=== PATIENT | female | born 1950 | race Caucasian/White ===

== ENCOUNTER 2018-02-25 13:01 | Emergency (ER) | payer MEDICARE, OTHER, SELFPAY ==
[2018-02-25 13:02] VITALS: BP 151/77; PULSE 110; RESP 18; TEMP 36.6; O2SAT 96; BMI 31.6
[2018-02-25] MEDS: Ketorolac 60 MG/2 ML Vial IM (14:19)
--- NOTE | 2018-02-25 14:56 | ED.DCSUM_ITS ---
- ER Visit Summary Date of Service: 02/25/18 Chief Complaint: [] Left medial leg pain after walking aggressively History of Present Illness: The patient is a 67 F [] she was trying to stay fit so she was very aggressively walking to lose weight and strengthen her body she pulled a muscle involving her left medial knee region this occurred many days ago, she was seen about for 5 days ago by her history at a local outside facility and had an evaluation that included an ultrasound that showed no DVT she had no direct trauma to her leg she presents because she has persistence of the pain she does not follow with her family physician or the other follow-up physician she was referred to she denies hip pain no trauma no lower extremity abnormalities or issues Physical Examination: [] Points directly to the left the region of her knee head neck chest unremarkable the abdomen soft she has full range of motion of her hip she has full flexion-extension of both lower extremities the left knee exam is unremarkable there is no instability deformity there is some very mild pain to palpation of the left medial muscular groups here. The popliteal fossa is nontender the distal lower extremity exam shows no edema no signs of DVT good perfusion and warmth the right lower extremities unremarkable the backs unremarkable. Test Results: [] Emergency Department Course and Treatment: [] Conversation with her explained her we could do an x-ray which she declined she double confirmed with me that she did have a duplex scan that showed no DVT and she has no history of DVT or trauma I explained this is likely musculoskeletal she has made an appointment see an orthopedic surgeon which she wants to follow-up with at this time we will treated with Toradol prescribed Naprosyn ice to the area no aggressive walking and have her follow-up with [facility] she is scheduled to see and return for change in symptoms Treatment Plan: [] Disposition: [] Home stable Impression: [] Left medial leg pain after aggressively walking This note was generated with [employer] dictation software. It may contain incorrect words, spelling, and punctuation that were not noted in review of the chart prior to signing ED Disposition - Plan for ED Patient: Chief Complaint: Lower Extremity Injury Referrals: Care Physician,No Primary [Primary Care Provider] -
--- NOTE | 2018-02-25 14:56 | ED.DEP ---
ED Disposition - Plan for ED Patient: Chief Complaint: Lower Extremity Injury Instructions: ED Knee Pain [facility] Prescriptions: Naproxen [Naprosyn] 500 mg PO BID PRN #20 tab Referrals: Care Physician,No Primary [Primary Care Provider] -
== END 2018-02-25 17:35 | disposition home or self-care (01) ==
PROVIDERS: Emergency Provider Emergency Medicine
DX: M79.605 Pain in left leg (principal); Z79.84 Long term (current) use of oral hypoglycemic drugs; Z79.899 Other long term (current) drug therapy
CPT/HCPCS: 96372; 99282

== ENCOUNTER → 2018-06-03 16:10 | Outpatient (CLI) | payer MEDICARE, OTHER, SELFPAY ==
[2018-06-03 17:22] LABS: Free T3 2.7 pg/mL (2.18-3.98); T4 Free Direct 1.14 ng/dL (0.76-1.46); Thyroid Stim Hormone (TSH) 2.89 uIU/mL (0.358-3.74)
== END ==
PROVIDERS: Family Provider Family Medicine; PCP Family Medicine; Referring Provider Nurse Practitioner; Visit Provider Nurse Practitioner
DX: E03.9 Hypothyroidism, unspecified (principal); E07.9 Disorder of thyroid, unspecified
CPT/HCPCS: 36415; 84439; 84443; 84481

== ENCOUNTER 2021-04-13 13:40 | Emergency (ER) | payer MEDICARE, OTHER, SELFPAY ==
[2021-04-13 13:41] VITALS: BP 141/64; PULSE 118; RESP 18; TEMP 36.4; O2SAT 94; BMI 33.5
--- NOTE | 2021-04-13 13:57 | CT_ITS ---
STUDY: CT ABDOMEN AND PELVIS WITH CONTRAST REASON FOR EXAM: Female, 70 years old. obstruction, right side pain RADIATION DOSAGE (If Supplied By Facility): CTDIvol = ( 14.94 ) mGy, DLP = ( 1032.19 ) mGycm TECHNIQUE: Transaxial images were obtained from the dome of the diaphragm to the symphysis pubis without oral contrast. IV 100mL Isovue-300 was administered. Sagittal and coronal images were reconstructed. Individualized dose optimization techniques were used for this CT. COMPARISON: None. FINDINGS: 2.9 x 2.9 cm well-defined low density (HOUNSFIELD units measure 9.6 with focal areas of negative density) The visualized portions of the heart are within normal limits. Normal liver. There is a solitary gallstone. The spleen is absent. Normal pancreas. Normal bilateral adrenal glands. Enlarged, heterogeneous right kidney with significant perinephric stranding and moderate hydronephrosis. Hydroureter and uroepithelial thickening extends to the distal right ureter where there is a 5 mm calculus. Heterogeneous enhancing lesion of the inferior right kidney on image 63 of series 2 measures 1.9 x 2.4 cm with irregular enhancing septa, possibly communicating with the inferior calyx (image 62 series 601). Normal left kidney. Normal visualized stomach. Normal small intestine. There are multiple colonic diverticula consistent with diverticulosis. There is non-visualization of the appendix. There is diffuse atherosclerotic calcification of the abdominal aorta, without a demonstrated aneurysm. Normal inferior vena cava. Mild adenopathy of the upper retroperitoneum adjacent to the right renal vein and IVC. Normal urinary bladder. Enlarged uterus with multiple partially calcified fibroids. Normal abdominal wall. There are diffuse degenerative changes of the visualized lumbar spine. CT/Abdomen/Pelvis W IV Cont ONLY IMPRESSION: 1. Moderate right hydronephrosis and hydroureter with 5 mm distal right ureteral calculus. Suspect pyelonephritis and possible pyonephrosis. 2.4 cm irregular enhancing cystic lesion of the inferior left kidney could represent focal infection/renal abscess, although a cystic neoplasm is also possible. Urology consultation recommended. 2. 2.9 x 2.9 cm left lower lobe low-density mass with focal areas of negative HOUNSFIELD units suggesting (although not diagnostic of) benign lesion such as hamartoma. However, no comparison studies available. Recommend correlation with prior imaging studies, as available. Alternatively, additional workup with chest CT, PET scan and potential biopsy, if clinically appropriate. 3. Additional chronic changes, as above. Electronically Signed: Rodrigo Myrick MD ([place]) at 15:10 EDT , Service support ,
--- NOTE | 2021-04-13 14:10 | EX.ED.DYSGE1 ---
HPI History of Present Illness Chief Complaint: Abd Pain Detail of Chief Complaint: Right side abdominal pain Informant: patient Onset/Context/Timing Onset: Days Context: Gradual Onset Timing: Continuous Location: Right side abdominal pain Current Severity: Moderate Worsened by: [place] on the cob and eating caramels Relieved by: Nothing Associated Symptoms Associated Symptoms: Constipation Narrative Narrative: This patient has been constipated for 3 days. She had one episode of vomiting 2 days ago. No vomiting since. No other associated symptoms. Remote history of splenectomy for low platelets Prior similar symptoms: No Recent Illness/Hospitalization: No PFSH PFSH Medical History Glaucoma Graves disease Hyperlipidemia Type 2 diabetes mellitus Home Medications latanoprost 1 drp EACH EYE QHS 02/25/18 [History Last Taken Unknown] levothyroxine 50 mcg PO DAILY 02/25/18 [History Last Taken Unknown] metformin 1,000 mg PO BIDCM 02/25/18 [History Last Taken Unknown] cholecalciferol (vitamin D3) 50 mcg (2,000 unit) capsule 2,000 unit PO DAILY 06/03/18 [History Last Taken Unknown] glimepiride 1 mg PO DAILY 04/13/21 [History Last Taken Unknown] Allergy/AdvReac Type Severity Reaction Status Date / Time No Known Allergies Allergy Verified 06/03/18 14:29 Surgical History H/O splenectomy Social History Smoking Status: Current some day smoker tobacco type: cigarettes ROS ROS ED Constitutional Constitutional ED: Denies chills or fever(s) Eyes Eyes: Denies change in vision ENT ENT ED: Denies ear pain Cardiovascular Cardiovascular: Denies chest pain Respiratory/Chest Respiratory/Chest: Denies dyspnea Gastrointestinal Gastrointestinal: Reports abdominal pain, constipation, nausea and vomiting; Denies diarrhea Genitourinary Genitourinary ED: Denies dysuria, hematuria or urinary frequency Musculoskeletal Musculoskeletal: Denies myalgias Integumentary Denies rash Neurologic Neurologic: Denies headache(s) Psychiatric Psychiatric: Denies depression Endocrine Endocrinology: Denies polyuria Allergic/Immunologic Allergic/Immunologic ED: Denies urticaria EXAM Physical Exam Const Vital Signs: 04/13/21 13:41 Temperature 97.5 F L Temperature Source Temporal Pulse Rate 118 H Respiratory Rate 18 Blood Pressure 141/64 H Blood Pressure Mean 89 Pulse Ox 94 Oxygen Delivery Method Room Air Positive well nourished and well developed General Appearance ED: well developed HEENT Negative for trauma or tenderness Eyes EOMs intact bilaterally Neck supple Resp normal respiratory effort and clear to auscultation bilaterally Cardio regular rate and regular rhythm GI Palpation: tender; Negative for guarding or rebound tenderness present Back/Spine no CVA tenderness Neuro oriented x3 Sensorium / Orientation: alert Psych mental status grossly normal Skin no rashes or lesions noted and no wounds MDM MDM MDM Narrative Medical decision making narrative: Patient has a ureteral stone on the right at the UVJ, 5 mm with obstruction. She also has a cyst concerning for abscess or neoplasm to the right kidney measuring 2.4 cm. She also has a left lower lobe nodule, 2.9 cm. Her white count was 26.6. I added on urine and blood cultures. She was treated with Rocephin. We do not have urology coverage at this facility. She requested summa and we are awaiting acceptance and transfer at this time. Accepted to [facility] Dr. Allison. Lab Data Attestation: I reviewed the patient's lab results. Labs: Laboratory Results - last 24 hr 04/13/21 04/13/21 04/13/21 13:50 13:50 15:25 WBC 26.6 H RBC 4.74 Hgb 13.9 Hct 42.8 MCV 90.3 MCH 29.3 MCHC 32.5 RDW Std Deviation 45.0 H RDW Coeff of Michelle 13.6 Plt Count 365 MPV 10.5 Immature Gran % (Auto) 0.800 Neut % (Auto) 85.2 H Lymph % (Auto) 8.5 L [place] % (Auto) 5.0 Eos % (Auto) 0.0 Baso % (Auto) 0.5 Absolute Neuts (auto) 22.7 H Absolute Lymphs (auto) 2.26 Nucleated RBC % 0 Differential Comment SCANNED Sodium 130 L Potassium 3.7 Chloride 94 L Carbon Dioxide 30.0 Anion Gap 6 BUN 24 H Creatinine 1.55 H Estim Creat Clear Calc 28.75 Est GFR (MDRD) Af Amer 42 L Est GFR (MDRD) Non-Af 35 L BUN/Creatinine Ratio 15.5 Glucose 269 H Calcium 8.9 Total Bilirubin 0.90 AST 17 ALT 23 Alkaline Phosphatase 83 Total Protein 7.6 Albumin 3.0 L Globulin 4.6 H Albumin/Globulin Ratio 0.7 L Lipase 56 L Urine Color Yellow Urine Clarity Cloudy Urine pH 6.5 Ur Specific [place] 1.010 Urine Protein 30 H Urine Glucose (UA) 250 H Urine Ketones Negative Urine Occult Blood 25 H Urine Nitrite Positive H Urine Bilirubin Negative Urine Urobilinogen Normal Ur Leukocyte Esterase Negative Urine RBC 0-5 SEEN Urine WBC 0-5 SEEN Ur Squamous Epith Cells 0 SEEN Urine Bacteria 2+ Fine Granular Casts 0-5 SEEN Urine Mucus 0 SEEN Radiography Diagnostic Testing: Radiology Impression Abdomen/Pelvis CT 04/13/21 13:57 IMPRESSION: 1. Moderate right hydronephrosis and hydroureter with 5 mm distal right ureteral calculus. Suspect pyelonephritis and possible pyonephrosis. 2.4 cm irregular enhancing cystic lesion of the inferior left kidney could represent focal infection/renal abscess, although a cystic neoplasm is also possible. Urology consultation recommended. 2. 2.9 x 2.9 cm left lower lobe low-density mass with focal areas of negative HOUNSFIELD units suggesting (although not diagnostic of) benign lesion such as hamartoma. However, no comparison studies available. Recommend correlation with prior imaging studies, as available. Alternatively, additional workup with chest CT, PET scan and potential biopsy, if clinically appropriate. 3. Additional chronic changes, as above. Electronically Signed: Rodrigo Myrick MD ([place]) at 15:10 EDT , Service support , Discharge Plan Triage Chief Complaint: Abd Pain ED Provider: Dino Carlisle Dx/Rx/DC Orders Clinical Impression: Calculus, ureteral, Mass of right kidney, Mass of left lung Prescriptions: No Action cholecalciferol (vitamin D3) 2,000 unit capsule 2,000 unit PO DAILY RF: 0 latanoprost 1 DROP bottle 1 drp EACH EYE QHS RF: 0 levothyroxine 50 MCG tablet 50 mcg PO DAILY RF: 0 metformin 1,000 MG tablet 1,000 mg PO BIDCM RF: 0 glimepiride 1 mg Tablet 1 mg PO DAILY RF: 0 Primary Care Provider: Jai Adkins Referrals: Jai Adkins MD [Primary Care Provider] -
[2021-04-13 14:16] LABS: Absolute Lymphocyte Count 2.26 X10^3/uL (0.83-4.51); Absolute Neutrophil Count 22.7 X10^3/uL (2.0-7.7); Basophil# 0.13 X10^3/uL; Basophil% 0.5 % (0-1); Hematocrit 42.8 % (37-47); Hemoglobin 13.9 g/dL (12.0-15.0); Lymphocyte # 2.26 X10^3/ul (0.83-4.51); Lymphocyte % 8.5 % (19-41); Mean Corp Hgb Conc 32.5 g/dL (32-36); Mean Corpuscular Hgb 29.3 pg (27.0-32.0); Mean Corpuscular Volume 90.3 fL (81-99); Mean Platelet Vol. 10.5 fl (6.2-12.0); Monocyte# 1.32 X10^3/uL; NRBC Flagged by Analyzer 0 % (0-5); Neutrophil # 22.65 X10^3/uL (2.7-7.7); Neutrophil % 85.2 % (47-70); POSITIVE DIFFERENTIAL YES; Platelet Count 365 K/mm3 (150-450); RBC Distribution Width CV 13.6 % (11.6-14.6); Red Blood Count 4.74 M/mm3 (4.2-5.4); White Blood Count 26.6 K/mm3 (4.4-11.0)
[2021-04-13 14:17] LABS: Differential Indicated SCAN CRITERIA MET
[2021-04-13 14:29] LABS: ALB/GLOB Ratio 0.7 RATIO (0.9-2.4); AST(SGOT) 17 U/L (15-37); Alanine Aminotransfer ALT/SGPT 23 U/L (13-56); Alkaline Phosphatase 83 U/L (45-117); Anion Gap 6 (5-15); BUN 24 mg/dL (7-18); BUN/Creat Ratio 15.5 RATIO (10-20); Calcium,Total 8.9 mg/dL (8.5-10.1); Chloride 94 mmol/L (98-107); Creatinine, Serum 1.55 mg/dL (0.55-1.02); EST Glomerular Filtration Rate 35 mL/min (>60); Est Glom Filt Rate - Afr Amer 42 mL/min (>60); Estimated Creatinine Clearance 28.75 ml/min; Globulin 4.6 g/dL (2.2-4.2); Glucose 269 mg/dL (74-106); Lipase 56 U/L (73-393); Potassium 3.7 mmol/L (3.5-5.1); Protein, Total 7.6 g/dL (6.4-8.2); Sodium Level 130 mmol/L (136-145)
[2021-04-13] MEDS: 0.9% Normal Saline 1,000 ML 1000 ML IV (14:33)
[2021-04-13 14:43] LABS: Differential Comment SCANNED
[2021-04-13 15:30] LABS: Mucous, Urine 0 SEEN /hpf (<or=2+); Squamous Epithelial Cells - UA 0 SEEN /hpf (5-10)
[2021-04-13 15:31] LABS: Color, Urine Yellow (Yellow); Glucose, Dipstick 250 mg/dl (Normal); Ketone-Dipstick Negative (Negative); Leukocyte Esterase-Dipstick Negative /ul (Negative); Nitrite-Dipstick Positive (Negative); Occult Blood-Urine 25 /ul (Negative); Protein-Dipstick 30 mg/dl (Negative); Urine Bilirubin Dipstick Negative (Negative); Urine Clarity Cloudy (Clear); Urine Urobilinogen Normal (Normal); Urine pH 6.5 (5.0 - 8.0)
--- NOTE | 2021-04-13 15:31 | ED.RN ---
[facility] CONTACTED FOR TRANSFER
[2021-04-13 15:43] LABS: Bacteria 2+ /hpf (None Seen)
[2021-04-13 15:44] LABS: Fine Granular Cast- Urine 0-5 SEEN /lpf (0-5)
[2021-04-13 15:45] LABS: Red Blood Cells-Urine 0-5 SEEN /hpf (0-5); White Blood Cells 0-5 SEEN /hpf (0-5)
--- NOTE | 2021-04-13 15:47 | NURSING ---
[id number] FACESHEET FAXED TO [facility]
--- NOTE | 2021-04-13 15:54 | NURSING ---
1551 CALLED [facility], SENT TO BED CONTROL, PHONE RANG TILL IT QUIT. NO ANSWER, COULDN'T LEAVE MESSAGE 1553 CALLED [facility], SENT TO TRANSFER LINE. PHONE RANG TIL IT QUIT. NO ANSWER, COULN'T LEAVE MESSAGE
--- NOTE | 2021-04-13 16:20 | NURSING ---
CALLED [facility], ETA IS 45 MIN
[2021-04-13] MEDS: Ceftriaxone 1 GM/50 ML BAG IV (16:29)
[2021-04-13 16:30] VITALS: BP 154/62; PULSE 118; RESP 16; TEMP 38.3; O2SAT 94
--- NOTE | 2021-04-14 05:41 | ED.RN ---
lab called with positive blood cultures. both aerobic blood cultures growing gram negative rods. Patient was transferred to [facility]. spoke with nursing staff made aware. will fax results to them at this time
== END 2021-04-13 17:08 | disposition other institution (70) ==
LOC: ED 14:13
PROVIDERS: Emergency Provider Emergency Medicine; PCP Family Medicine
DX: N13.2 Hydronephrosis with renal and ureteral calculous obstruction (principal); Q61.9 Cystic kidney disease, unspecified; R91.8 Other nonspecific abnormal finding of lung field; K59.00 Constipation, unspecified; E11.9 Type 2 diabetes mellitus without complications; E05.00 Thyrotoxicosis with diffuse goiter without thyrotoxic crisis or storm; E78.5 Hyperlipidemia, unspecified; H40.9 Unspecified glaucoma; F17.210 Nicotine dependence, cigarettes, uncomplicated; Z79.84 Long term (current) use of oral hypoglycemic drugs; Z79.890 Hormone replacement therapy; Z79.899 Other long term (current) drug therapy; Z90.81 Acquired absence of spleen
CPT/HCPCS: 74177; 80053; 81001; 83690; 85025; 87040; 87077; 87086; 87088; 87186; 96361; 96365; 99285; J7030; Q9967

== ENCOUNTER 2022-08-01 13:44 | Inpatient (IN) | payer MEDICARE, OTHER, SELFPAY ==
[2022-08-01] VITALS (15 sets, daily range): BP systolic 127–158; BP diastolic 56–83; PULSE 98–110; RESP 16–22; TEMP 36.4–37.1; O2SAT 85–96; BMI 35.2; BMI 35.5
--- NOTE | 2022-08-01 13:48 | EKG12_ITS ---
Test Reason : SOB Blood Pressure : / mmHG Vent. Rate : 101 BPM Atrial Rate : 101 BPM P-R Int : 154 ms QRS Dur : 106 ms QT Int : 332 ms P-R-T Axes : 074 261 059 degrees QTc Int : 430 ms Sinus tachycardia with Premature atrial complexes Right superior axis deviation Incomplete right bundle branch block Right ventricular hypertrophy Abnormal ECG Confirmed by VILLA MENON, LEVAR ([id number]), material expeditor LUKAS HAGAN ([id number]) on 08/04/2022 11:22:08 AM Referred By: Confirmed By:LEVAR DRIVER MD
[2022-08-01 14:21] LABS: Absolute Lymphocyte Count 2.45 X10^3/uL (0.83-4.51); Absolute Neutrophil Count 8.3 X10^3/uL (2.0-7.7); Basophil# 0.06 X10^3/uL; Basophil% 0.5 % (0-1); Eosinophil# 0.01 X10^3/uL; Eosinophils% 0.1 % (0-5); Hematocrit 44.3 % (37-47); Hemoglobin 13.9 g/dL (12.0-15.0); Lymphocyte # 2.45 X10^3/ul (0.83-4.51); Lymphocyte % 20.7 % (19-41); Mean Corp Hgb Conc 31.4 g/dL (32-36); Mean Corpuscular Hgb 28.7 pg (27.0-32.0); Mean Corpuscular Volume 91.3 fL (81-99); Mean Platelet Vol. 10.4 fl (6.2-12.0); Monocyte# 0.96 X10^3/uL; Monocyte% 8.1 % (0-10); NRBC Flagged by Analyzer 0 % (0-5); Neutrophil # 8.31 X10^3/uL (2.7-7.7); Neutrophil % 70.3 % (47-70); Platelet Count 317 K/mm3 (150-450); RBC Distribution Width CV 14.6 % (11.6-14.6); Red Blood Count 4.85 M/mm3 (4.2-5.4); White Blood Count 11.8 K/mm3 (4.4-11.0)
--- NOTE | 2022-08-01 14:25 | EDS_ITS ---
HPI <DAVID Mcallister - Last Filed: 08/01/22 15:13> History of Present Illness Chief Complaint: Shortness of Breath Narrative Narrative: 72-year-old female that smokes 1 pack/day who has history of diabetes type 2, hypothyroidism presents to the emergency department for 1 week of generalized cough, worsening shortness of breath. Patient states she was going to see her PCP today, her pulse oxygenation was in the mid 80s. When the nurses brought her back she was 84% on room air. Patient has no history of COPD, no oxygen administration at home. Patient is currently not on any inhalers. Patient feels tightness in her chest. Patient does have a cough however clear sputum. No fever or chills. PFSH <DAVID Mcallister - Last Filed: 08/01/22 15:13> PFS Medical History Glaucoma Graves disease Hyperlipidemia Type 2 diabetes mellitus Home Medications latanoprost 0.005 % eye drops 1 drp EACH EYE QHS 02/25/18 [History Last Taken 07/31/22] levothyroxine 50 mcg tablet 50 mcg PO DAILY THYROID 02/25/18 [History Last Taken 08/01/22] cholecalciferol (vitamin D3) 50 mcg (2,000 unit) capsule 2,000 unit PO DAILY SUPPLEMENT 06/03/18 [History Last Taken 3 Days Ago ~07/29/22] insulin glargine 100 unit/mL (3 mL) subcutaneous pen (Lantus Solostar U-100 Insulin) 7 unit subcut QHS DIABETES 08/01/22 [History Last Taken 07/31/22] insulin lispro 100 unit/mL subcutaneous pen 2 - 3 unit subcut BID DIABETES 08/01/22 [History Last Taken 08/01/22] rosuvastatin 10 mg tablet 10 mg PO QODAY CHOLESTEROL 08/01/22 [History Last Taken 4 Days Ago ~07/28/22] Allergy/AdvReac Type Severity Reaction Status Date / Time No Known Allergies Allergy Verified 08/01/22 13:44 Surgical History H/O splenectomy Social History Smoking Status: Current every day smoker tobacco type: cigarettes ROS <DAVID Mcallister - Last Filed: 08/01/22 15:13> ROS ED ROS Narrative Constitutional: Negative for fever, chills, weight loss, weakness Eyes: Negative for vision loss, vision change, double vision ENT: Negative for any sore throat, ear pain, congestion Cardiovascular: Negative for any chest pain, tightness, palpitations Respiratory: Negative for any sputum production, hemoptysis. Positive for cough, dyspnea, dyspnea on exertion, orthopnea Gastrointestinal: Negative for any abdominal pain, nausea, vomiting, diarrhea, constipation, blood in stool, blood in vomit : Negative for any urinary frequency, dysuria, retention, blood in urine Muscle skeletal: Negative for any muscle joint pain, stiffness, myalgias, arthralgias, neck pain, back pain Neurological: Negative for any headache, syncope, numbness or tingling, dizziness Skin: Negative for any rashes, lumps, itching, abrasions, lacerations Psychiatric: Negative for any depression, anxiety, stress, suicidal ideation, homicidal ideation Hematologic: Negative for any easy bruising, excessive bruising, easy bleeding Allergies: Negative for any eczema, hives, rash EXAM <DAVID Mcallister - Last Filed: 08/01/22 15:13> Physical Exam Narrative Exam Narrative: Vital signs reviewed. Patient on 3 L nasal cannula is 94%, patient is tachypneic. Patient has audible wheezing on exam. Patient speaks in broken sentences. HEET: Head normocephalic atraumatic, TMs clear bilaterally. Posterior pharynx is clear, moist mucous membranes. Nares clear bilaterally. Neck: Supple with no lymphadenopathy or tenderness. No signs of meningismus, negative jolt sign. Cardiac: Tachycardic rate no murmurs gallops or rubs, equal peripheral pulses bilaterally. Respiratory: Patient has diffuse expiratory wheezes throughout pulmonary exam, diminished lung sounds in the bases.. No chest tenderness. Abdomen: Soft, nontender, nondistended. No abdominal bruit or pulsatile masses. No hepatosplenomegaly Extremities: No peripheral edema, no signs of gross trauma or deformity. Active full range of motion of all extremities. Neuro: Cranial nerves II through XII intact, no focal neurological deficits. Skin: Clean dry and intact with no rash, purpura, petechiae, vesicles or pustules. Backs/flank: No CVA tenderness, no midline spinal tenderness, no deformity. Psych: Normal mood and affect. No SI, HI or acute psychosis. Const Vital Signs: 08/01/22 13:45 08/01/22 13:51 08/01/22 14:18 Temperature 97.8 F Temperature Source Temporal Pulse Rate 110 H Respiratory Rate 20 H Respiratory Effort Respiratory Pattern Blood Pressure 139/83 H Blood Pressure Mean 101 Pulse Ox 93 85 96 Oxygen Delivery Method Room Air Room Air Nasal Cannula Oxygen Flow Rate (L/min) 2 08/01/22 14:20 08/01/22 14:38 08/01/22 14:38 Temperature Temperature Source Pulse Rate 104 H Respiratory Rate 22 H Respiratory Effort Short of Breath Respiratory Pattern Tachypnea Blood Pressure Blood Pressure Mean Pulse Ox 93 Oxygen Delivery Method Nasal Cannula Oxygen Flow Rate (L/min) 2 08/01/22 14:38 08/01/22 15:04 08/01/22 15:04 Temperature Temperature Source Pulse Rate 103 H Respiratory Rate 21 H 21 H Respiratory Effort Respiratory Pattern Blood Pressure Blood Pressure Mean Pulse Ox 93 93 Oxygen Delivery Method Nasal Cannula Nasal Cannula Oxygen Flow Rate (L/min) 2 2 08/01/22 15:17 Temperature 97.9 F Temperature Source Temporal Pulse Rate 103 H Respiratory Rate 18 Respiratory Effort Respiratory Pattern Blood Pressure 158/83 H Blood Pressure Mean 108 Pulse Ox 93 Oxygen Delivery Method Nasal Cannula Oxygen Flow Rate (L/min) 2 <Dr. Keo Romano MD - Last Filed: 08/01/22 15:59> Physical Exam Const Vital Signs: 08/01/22 13:45 08/01/22 13:51 08/01/22 14:18 Temperature 97.8 F Temperature Source Temporal Pulse Rate 110 H Respiratory Rate 20 H Respiratory Effort Respiratory Pattern Blood Pressure 139/83 H Blood Pressure Mean 101 Pulse Ox 93 85 96 Oxygen Delivery Method Room Air Room Air Nasal Cannula Oxygen Flow Rate (L/min) 2 08/01/22 14:20 08/01/22 14:38 08/01/22 14:38 Temperature Temperature Source Pulse Rate 104 H Respiratory Rate 22 H Respiratory Effort Short of Breath Respiratory Pattern Tachypnea Blood Pressure Blood Pressure Mean Pulse Ox 93 Oxygen Delivery Method Nasal Cannula Oxygen Flow Rate (L/min) 2 08/01/22 14:38 08/01/22 15:04 08/01/22 15:04 Temperature Temperature Source Pulse Rate 103 H Respiratory Rate 21 H 21 H Respiratory Effort Respiratory Pattern Blood Pressure Blood Pressure Mean Pulse Ox 93 93 Oxygen Delivery Method Nasal Cannula Nasal Cannula Oxygen Flow Rate (L/min) 2 2 08/01/22 15:17 Temperature 97.9 F Temperature Source Temporal Pulse Rate 103 H Respiratory Rate 18 Respiratory Effort Respiratory Pattern Blood Pressure 158/83 H Blood Pressure Mean 108 Pulse Ox 93 Oxygen Delivery Method Nasal Cannula Oxygen Flow Rate (L/min) [address] [facility] <DAVID Mcallister - Last Filed: 08/01/22 15:13> [facility] Lab Data Labs: Laboratory Results - last 24 hr 08/01/22 08/01/22 08/01/22 14:13 14:15 14:15 WBC 11.8 H RBC 4.85 Hgb 13.9 Hct 44.3 MCV 91.3 MCH 28.7 MCHC 31.4 L RDW Std Deviation 49.0 H RDW Coeff of Michelle 14.6 Plt Count 317 MPV 10.4 Immature Gran % (Auto) 0.300 Neut % (Auto) 70.3 H Lymph % (Auto) 20.7 Elbert % (Auto) 8.1 Eos % (Auto) 0.1 Baso % (Auto) 0.5 Absolute Neuts (auto) 8.3 H Absolute Lymphs (auto) 2.45 Nucleated RBC % 0 D-Dimer Quant (PE/DVT) 0.60 H* Sodium 135 L Potassium 4.2 Chloride 100 Carbon Dioxide 28.0 Anion Gap 7 BUN 21 H Creatinine 1.35 H Estim Creat Clear Calc 32.05 Est GFR (MDRD) Af Amer 49 L Est GFR (MDRD) Non-Af 41 L BUN/Creatinine Ratio 15.6 Glucose 350 H Calcium 8.9 B-Natriuretic Peptide 08/01/22 14:15 WBC RBC Hgb Hct MCV MCH MCHC RDW Std Deviation RDW Coeff of Michelle Plt Count MPV Immature Gran % (Auto) Neut % (Auto) Lymph % (Auto) Elbert % (Auto) Eos % (Auto) Baso % (Auto) Absolute Neuts (auto) Absolute Lymphs (auto) Nucleated RBC % D-Dimer Quant (PE/DVT) Sodium Potassium Chloride Carbon Dioxide Anion Gap BUN Creatinine Estim Creat Clear Calc Est GFR (MDRD) Af Amer Est GFR (MDRD) Non-Af BUN/Creatinine Ratio Glucose Calcium B-Natriuretic Peptide 6.0 Radiography Diagnostic Testing: Clinical Impression(s) from Imaging Studies Chest X-Ray 08/01/22 14:29 IMPRESSION: No focal infiltrate. Left lower lobe mass similar to prior CT, allowing for differences in technique. Electronically Signed: Robson Light MD at 15:02 EST Reading Location ID and State: [address] [place] [address] , Service support , EKG Sinus tachycardia, rate 101 bpm. : Attestation: I personally reviewed and interpreted this EKG as follows: Comments: Sinus tachycardic, rate of 101 bpm, AK 154 ms, QRS duration 106 ms, no acute ST elevation, no acute infarct noted Treatment and Re-Evaluation Narrative: Patient arrives in mild respiratory distress, patient was hypoxic in triage of 84%, patient presents the [facility] apartment for cough, increased was of breath over the last 3 to 4 days. Patient's chest x-ray shows no focal infiltrate, there is a left lower lobe mass that is similar to her prior CT. Patient was placed on oxygen, given aerosol treatments as well as steroids. Patient is positive for influenza A. CBC shows a leukocytosis white blood count 11.8, patient's BNP was negative at 6.0. Secondary to the patient's hypoxia, she was given Tamiflu for the influenza A. She will need to be admitted to the hospital for respiratory failure hypoxia, influenza pneumonia. Patient be admitted to the hospitalist. <Dr. Keo Romano MD - Last Filed: 08/01/22 15:59> [facility] Narrative Medical decision making narrative: I have personally performed a face to face assessment of the patient and have reviewed the DAVONTE Note. I performed a substantive portion of the visit including all aspects of the following. My jaime findings include: History is remarkable for 3-day history of respiratory symptoms. She complains of dyspnea, dyspnea on exertion. She complains of myalgias arthralgias. She is not normally on oxygen. When she arrived her pulse ox 84% on room air. Exam is patient has expiratory wheezing. She is tachycardic and tachypneic. Heart is rapid and regular. There are normal breath sounds on the right. Equivocal egophony with no tactile fremitus noted. Medical Decision Making differential diagnoses include systemic viral infection, pneumonia, doubt pulmonary embolus since patient has infectious symptoms. Other additions or changes: Influenza was positive. Since patient is hypoxic she was treated with Tamiflu. Hospitalist was called for admission. Hospitalist requested D-dimer. D-dimer is normal when corrected for age. Lab Data Attestation: I reviewed the patient's lab results. Labs: Laboratory Results - last 24 hr 08/01/22 08/01/22 08/01/22 14:13 14:15 14:15 WBC 11.8 H RBC 4.85 Hgb 13.9 Hct 44.3 MCV 91.3 MCH 28.7 MCHC 31.4 L RDW Std Deviation 49.0 H RDW Coeff of Michelle 14.6 Plt Count 317 MPV 10.4 Immature Gran % (Auto) 0.300 Neut % (Auto) 70.3 H Lymph % (Auto) 20.7 Elbert % (Auto) 8.1 Eos % (Auto) 0.1 Baso % (Auto) 0.5 Absolute Neuts (auto) 8.3 H Absolute Lymphs (auto) 2.45 Nucleated RBC % 0 D-Dimer Quant (PE/DVT) 0.60 H* Sodium 135 L Potassium 4.2 Chloride 100 Carbon Dioxide 28.0 Anion Gap 7 BUN 21 H Creatinine 1.35 H Estim Creat Clear Calc 32.05 Est GFR (MDRD) Af Amer 49 L Est GFR (MDRD) Non-Af 41 L BUN/Creatinine Ratio 15.6 Glucose 350 H Calcium 8.9 B-Natriuretic Peptide 08/01/22 14:15 WBC RBC Hgb Hct MCV MCH MCHC RDW Std Deviation RDW Coeff of Michelle Plt Count MPV Immature Gran % (Auto) Neut % (Auto) Lymph % (Auto) Elbert % (Auto) Eos % (Auto) Baso % (Auto) Absolute Neuts (auto) Absolute Lymphs (auto) Nucleated RBC % D-Dimer Quant (PE/DVT) Sodium Potassium Chloride Carbon Dioxide Anion Gap BUN Creatinine Estim Creat Clear Calc Est GFR (MDRD) Af Amer Est GFR (MDRD) Non-Af BUN/Creatinine Ratio Glucose Calcium B-Natriuretic Peptide 6.0 Radiography Diagnostic Testing: Clinical Impression(s) from Imaging Studies Chest X-Ray 08/01/22 14:29 IMPRESSION: No focal infiltrate. Left lower lobe mass similar to prior CT, allowing for differences in technique. Electronically Signed: Robson Light MD at 15:02 EST , Discharge Plan Triage Chief Complaint: Shortness of Breath ED Midlevel Provider: Tab Farias ED Provider: Keo Romano Dx/Rx/DC Orders Clinical Impression: Influenza A, Acute respiratory failure with hypoxia, Lung mass, Acute bronchospasm Primary Care Provider: Jai Adkins
[2022-08-01] MEDS: MethylPREDNISolone 125 MG/2 ML Vial IV (14:26)
--- NOTE | 2022-08-01 14:29 | RAD_ITS ---
STUDY: X-RAY CHEST REASON FOR EXAM: Female, 72 years old. SOB TECHNIQUE: Single AP portable view of the chest. COMPARISON: CT abdomen and pelvis April 13, 2021. FINDINGS: There are monitoring devices. There is 3.2 cm left lower lobe mass. There is no focal infiltrate. There is no demonstrated pleural abnormality. Normal size heart. Normal mediastinum and mireya. Normal visualized pulmonary arteries. Normal visualized aortic arch and descending thoracic aorta. Normal visualized thoracic spine. Normal visualized ribs, clavicles, and shoulders. There is no demonstrated abnormality of the visualized soft tissue structures of the upper abdomen. RAD/Chest 1 View (Portable) IMPRESSION: No focal infiltrate. Left lower lobe mass similar to prior CT, allowing for differences in technique. Electronically Signed: Robson Light MD at 15:02 EST ,
[2022-08-01] MEDS: Ipratropium/Albuterol Sulfate 3 ML AMPUL.NEB INHALATION ×2 (14:36→19:55)
[2022-08-01] MEDS: Albuterol 2.5 MG/3 ML VIAL.NEB. INHALATION (15:03)
[2022-08-01] MEDS: Oseltamivir Phosphate 75 MG Capsule PO (15:18)
[2022-08-01 15:29] LABS: Anion Gap 7 (5-15); BUN 21 mg/dL (7-18); BUN/Creat Ratio 15.6 RATIO (10-20); Calcium,Total 8.9 mg/dL (8.5-10.1); Chloride 100 mmol/L (98-107); Creatinine, Serum 1.35 mg/dL (0.55-1.02); EST Glomerular Filtration Rate 41 mL/min (>60); Est Glom Filt Rate - Afr Amer 49 mL/min (>60); Estimated Creatinine Clearance 32.05 ml/min; Glucose 350 mg/dL (74-106); Potassium 4.2 mmol/L (3.5-5.1); Sodium Level 135 mmol/L (136-145)
--- NOTE | 2022-08-01 15:42 | PCM.HP.STD ---
HPI - General General Date of Admission: 08/01/22 Date of Service: 08/01/22 Chief Complaint: SOB, sore throat, runny nose ongoing for days HPI Narrative MARIAH FLORES, is a 72 F who presents with the above. Patient has past medical history of left lung mass, not worked up, type II DM, hypothyroidism who comes in from her primary care doctor's office with complaints of shortness of breath, sore throat, runny nose. Patient denied any fever or chills. She was seen in primary care doctor's office was sent to emergency room for concerns for hypoxia. She continues to smoke smokes about 1 pack a day. Denied any sick contact. She lives alone. She is not sure about the diagnosis of acute COPD exacerbation. Vitals in ED showed blood pressure 139/89, heart rate 110, respiratory rate 20, SPO2 is 97.8F, oxygen sat 93% on room air. WBC count 11.8, hemoglobin 13.9, platelet count 317, D-dimer 0.60, sodium 135, potassium 4.1 chloride 100, carbon 28, BUN 21, creatinine 1.35, previous creatinine was 1.55. Admitting chest x-ray showed no focal injuries, showed left lower lobe mass similar to prior CT. Acute rapid COVID-19 antigen test is negative. Influenza A is positive. [facility] Medical History Glaucoma Graves disease Hyperlipidemia Type 2 diabetes mellitus Home Medications latanoprost 0.005 % eye drops 1 drp EACH EYE QHS glaucoma 02/25/18 [History Last Taken 07/31/22] levothyroxine 50 mcg tablet 50 mcg PO DAILY THYROID 02/25/18 [History Last Taken 08/01/22] cholecalciferol (vitamin D3) 50 mcg (2,000 unit) capsule 2,000 unit PO DAILY SUPPLEMENT 06/03/18 [History Last Taken 3 Days Ago ~07/29/22] insulin glargine 100 unit/mL (3 mL) subcutaneous pen (Lantus Solostar U-100 Insulin) 7 unit subcut QHS DIABETES 08/01/22 [History Last Taken 07/31/22] insulin lispro 100 unit/mL subcutaneous pen 2 - 3 unit subcut BID DIABETES 08/01/22 [History Last Taken 08/01/22] rosuvastatin 10 mg tablet 10 mg PO QODAY CHOLESTEROL 08/01/22 [History Last Taken 4 Days Ago ~07/28/22] Allergy/AdvReac Type Severity Reaction Status Date / Time No Known Allergies Allergy Verified 08/01/22 13:44 Family History Mother No problems noted. Father No problems noted. Surgical History H/O splenectomy Social History (Updated 08/01/22 @ 17:[address] Nicol Sweeney MD) household members: spouse Smoking Status: Current every day smoker tobacco type: cigarettes alcohol intake: former substance use type: does not use ROS ROS Narrative Constitutional: Reports: Malaise, Weakness, Fatigue. Denies: Anorexia, Chills, Fever, Night Sweats, Weight Change Eyes: Denies: Blurred vision, Cataracts, Conjunctivae Inflammation, Pain, Redness, Vision Change HEENT: Denies: Difficulty Hearing, Difficulty Swallowing, Head Aches, Hearing Changes, Sinus Congestion, Sinus Drainage Cardiovascular: Denies: Chest Pain, Orthopnea, Palpitations Respiratory: See HPI Gastrointestinal: Denies: Abdominal Pain, Nausea, Vomiting Genitourinary: Denies: Dysuria Musculoskeletal: Denies: Joint Pain, Joint stiffness, Joint swelling, Joint Tenderness Skin: Denies: Rash, Wounds Neurological: Denies: Numbness, Tingling, Focal weakness Vital Signs Vital Signs Vital Signs: 08/01/22 13:45 08/01/22 13:51 08/01/22 14:18 Temperature 97.8 F Temperature Source Temporal Pulse Rate 110 H Respiratory Rate 20 H Respiratory Effort Respiratory Pattern Blood Pressure 139/83 H Blood Pressure Mean 101 Pulse Ox 93 85 96 Oxygen Delivery Method Room Air Room Air Nasal Cannula Oxygen Flow Rate (L/min) 2 08/01/22 14:20 08/01/22 14:38 08/01/22 14:38 Temperature Temperature Source Pulse Rate 104 H Respiratory Rate 22 H Respiratory Effort Short of Breath Respiratory Pattern Tachypnea Blood Pressure Blood Pressure Mean Pulse Ox 93 Oxygen Delivery Method Nasal Cannula Oxygen Flow Rate (L/min) 2 08/01/22 14:38 08/01/22 15:04 08/01/22 15:04 Temperature Temperature Source Pulse Rate 103 H Respiratory Rate 21 H 21 H Respiratory Effort Respiratory Pattern Blood Pressure Blood Pressure Mean Pulse Ox 93 93 Oxygen Delivery Method Nasal Cannula Nasal Cannula Oxygen Flow Rate (L/min) 2 2 08/01/22 15:17 Temperature 97.9 F Temperature Source Temporal Pulse Rate 103 H Respiratory Rate 18 Respiratory Effort Respiratory Pattern Blood Pressure 158/83 H Blood Pressure Mean 108 Pulse Ox 93 Oxygen Delivery Method Nasal Cannula Oxygen Flow Rate (L/min) 2 Weight Weight: 92.986 kg Body Mass Index (BMI) 35.2 Physical Exam Narrative Physical exam: General: Alert, Oriented x3, Cooperative, on 2 L of oxygen HEENT: Atraumatic Oral: Moist Mucosa Neck: Supple Lungs: Diminished to auscultation, wheezes++ Cardiovascular: HS I+II, regular, no murmurs Abdomen: Bowel Sounds Present, Soft, Non Tender Extremities: No edema Skin: No rashes, No breakdown Neurological: Grossly intact Psych/Mental Status: Appropriate Results Lab / Micro Data Result Diagrams: 08/01/22 14:15 08/01/22 14:15 Labs: Laboratory Results - last 24 hr 08/01/22 14:13: D-Dimer Quant (PE/DVT) 0.60 H* 08/01/22 14:15: WBC 11.8 H, RBC 4.85, Hgb 13.9, Hct 44.3, MCV 91.3, MCH 28.7, MCHC 31.4 L, RDW Std Deviation 49.0 H, RDW Coeff of Michelle 14.6, Plt Count 317, MPV 10.4, Immature Gran % (Auto) 0.300, Neut % (Auto) 70.3 H, Lymph % (Auto) 20.7, Geary % (Auto) 8.1, Eos % (Auto) 0.1, Baso % (Auto) 0.5, Absolute Neuts (auto) 8.3 H, Absolute Lymphs (auto) 2.45, Nucleated RBC % 0 08/01/22 14:15: Sodium 135 L, Potassium 4.2, Chloride 100, Carbon Dioxide 28.0, Anion Gap 7, BUN 21 H, Creatinine 1.35 H, Estim Creat Clear Calc 32.05, Est GFR (MDRD) Af Amer 49 L, Est GFR (MDRD) Non-Af 41 L, BUN/Creatinine Ratio 15.6, Glucose 350 H, Calcium 8.9 08/01/22 14:15: B-Natriuretic Peptide 6.0 Micro: Microbiology 08/01/22 14:09 Nasal Secretion SARS-CoV-2 Antigen (Rapid) - Final 08/01/22 14:30 Interface Orders Influenza Types A,B Direct FA (CARLOS) - Final Influenzae A Radiology Impression Chest X-Ray 08/01/22 14:29 IMPRESSION: No focal infiltrate. Left lower lobe mass similar to prior CT, allowing for differences in technique. Electronically Signed: Robson Light MD at 15:02 EST , Assessment & Plan Assessment/Plan (1) Hypoxia: PLAN: Plan 1. Acute hypoxia secondary to acute influenza A bronchitis Patient is currently on 2 L of oxygen Admitting chest x-ray showed no focal infiltrate Continue to encourage use of incentive spirometer, wean off for SPO2 more than 94% 2. Acute influenza A bronchitis, continue on IV steroids, Tamiflu 3. Left lung mass, not actively worked up by patient, appears unchanged Encouraged to follow-up 4. Type II DM, insulin-dependent, continue Lantus, Premeal insulin as well as insulin sliding scale 5. Hypothyroidism, continue Synthroid 6. Hyperlipidemia, continue statin 7. Nicotine dependence, continue replacement 8. DVT PPx- Lovenox SC Charges/Coding Visit Charges Inpatient E&M: 37959 Init Hosp L3
[2022-08-01 17:30] LABS: Bedside Glucose 278 mg/dL (74-106)
[2022-08-01] MEDS: Insulin Lispro 100 UNIT/ML INSULN.PEN SC ×2 (17:50→22:05)
[2022-08-01] MEDS: 0.9% Normal Saline 1,000 ML 75 ML IV (17:50)
[2022-08-01] MEDS: Insulin Glargine-YFGN 100 UNIT/ML Pen 7 UNIT SC (22:07)
[2022-08-01] MEDS: Oseltamivir Phosphate 30 MG Capsule PO (22:11)
[2022-08-01] MEDS: Atorvastatin Calcium 20 MG Tablet PO (22:11)
[2022-08-01 23:20] LABS: Bedside Glucose 446 mg/dL (74-106)
[2022-08-02] VITALS (14 sets, daily range): BP systolic 126–157; BP diastolic 56–75; PULSE 78–110; RESP 16–20; TEMP 36.6–37.1; O2SAT 93–95
[2022-08-02] MEDS: Latanoprost 0.005% 1 Bottle 1 DRP EACH EYE ×2 (01:38→21:58)
[2022-08-02] MEDS: Levothyroxine 50 MCG Tablet PO (05:25)
[2022-08-02] MEDS: 0.9% Saline Lock 10 ML Syringe IV ×3 (05:25→21:57)
[2022-08-02 06:10] LABS: Absolute Lymphocyte Count 1.24 X10^3/uL (0.83-4.51); Absolute Neutrophil Count 4.1 X10^3/uL (2.0-7.7); Basophil# 0.02 X10^3/uL; Basophil% 0.4 % (0-1); Hematocrit 41.8 % (37-47); Hemoglobin 12.9 g/dL (12.0-15.0); Lymphocyte # 1.24 X10^3/ul (0.83-4.51); Lymphocyte % 22.3 % (19-41); Mean Corp Hgb Conc 30.9 g/dL (32-36); Mean Corpuscular Hgb 28.3 pg (27.0-32.0); Mean Corpuscular Volume 91.7 fL (81-99); Mean Platelet Vol. 10.7 fl (6.2-12.0); Monocyte# 0.23 X10^3/uL; Monocyte% 4.1 % (0-10); NRBC Flagged by Analyzer 0 % (0-5); Neutrophil # 4.06 X10^3/uL (2.7-7.7); Platelet Count 322 K/mm3 (150-450); RBC Distribution Width CV 14.5 % (11.6-14.6); RBC Distribution Width SD 48.8 fl (35.1-43.9); Red Blood Count 4.56 M/mm3 (4.2-5.4); White Blood Count 5.6 K/mm3 (4.4-11.0)
[2022-08-02] MEDS: Insulin Lispro 100 UNIT/ML INSULN.PEN SC ×4 (06:24→21:58)
[2022-08-02 06:39] LABS: ALB/GLOB Ratio 0.7 RATIO (0.9-2.4); AST(SGOT) 25 U/L (15-37); Alanine Aminotransfer ALT/SGPT 41 U/L (13-56); Albumin, Serum 2.8 g/dL (3.2-5.0); Alkaline Phosphatase 76 U/L (45-117); Anion Gap 6 (5-15); BUN 21 mg/dL (7-18); BUN/Creat Ratio 22.2 RATIO (10-20); Calcium,Total 8.4 mg/dL (8.5-10.1); Chloride 103 mmol/L (98-107); Creatinine, Serum 0.95 mg/dL (0.55-1.02); EST Glomerular Filtration Rate 62 mL/min (>60); Est Glom Filt Rate - Afr Amer 75 mL/min (>60); Estimated Creatinine Clearance 45.54 ml/min; Globulin 3.9 g/dL (2.2-4.2); Glucose 354 mg/dL (74-106); Potassium 4.3 mmol/L (3.5-5.1); Protein, Total 6.7 g/dL (6.4-8.2); Sodium Level 135 mmol/L (136-145)
[2022-08-02 06:50] LABS: Bedside Glucose 368 mg/dL (74-106)
[2022-08-02] MEDS: Ipratropium/Albuterol Sulfate 3 ML AMPUL.NEB INHALATION ×4 (07:06→19:11)
[2022-08-02] MEDS: Oseltamivir Phosphate 30 MG Capsule PO ×2 (08:28→21:58)
[2022-08-02] MEDS: Enoxaparin 40 MG/0.4 ML Syringe SC (08:29)
[2022-08-02] MEDS: Cholecalciferol (VIT D3) 25 MCG TABLET (1,000 UNITS) 50 MCG PO (08:29)
--- NOTE | 2022-08-02 09:26 | PN.HOSP_ITS ---
Subjective Subjective Follow-up on acute hypoxia /acute influenza A bronchitis: Patient was seen and examined. She remains on 2 L of oxygen. She still complains of coughing. Denies any fever or chills. No acute events overnight. Blood sugars have been uncontrolled. Objective Data Objective Data Vital Signs: Vital Signs Temp Pulse Resp BP Pulse Ox O2 Del Method O2 Flow Rate 97.8 F 82 20 H 157/59 H 94 Room Air 2 08/02/22 05:15 08/02/22 07:04 08/02/22 07:04 08/02/22 05:15 08/02/22 07:04 08/02/22 08:18 08/02/22 07:04 Oxygen Flow Rate (L/min) 2 Oxygen Delivery Method Room Air Weight: 94 kg Body Mass Index (BMI) 35.5 Intake & Output: Intake and Output for Last 24 Hours 07/31/22 08/01/22 08/02/22 23:59 23:59 23:59 Intake Total 240 / 240 1000 / 1000 Balance 240 / 240 1000 / 1000 Lab / Micro Data Result Diagrams: 08/02/22 05:49 08/02/22 05:49 Labs: Laboratory Results - last 24 hr 08/01/22 14:13: D-Dimer Quant (PE/DVT) 0.60 H* 08/01/22 14:15: WBC 11.8 H, RBC 4.85, Hgb 13.9, Hct 44.3, MCV 91.3, MCH 28.7, MC HC 31.4 L, RDW Std Deviation 49.0 H, RDW Coeff of Michelle 14.6, Plt Count 317, MPV 10.4, Immature Gran % (Auto) 0.300, Neut % (Auto) 70.3 H, Lymph % (Auto) 20.7, Harding % (Auto) 8.1, Eos % (Auto) 0.1, Baso % (Auto) 0.5, Absolute Neuts (auto) 8.3 H, Absolute Lymphs (auto) 2.45, Nucleated RBC % 0 08/01/22 14:15: Sodium 135 L, Potassium 4.2, Chloride 100, Carbon Dioxide 28.0, Anion Gap 7, BUN 21 H, Creatinine 1.35 H, Estim Creat Clear Calc 32.05, Est GFR (MDRD) Af Amer 49 L, Est GFR (MDRD) Non-Af 41 L, BUN/Creatinine Ratio 15.6, Glucose 350 H, Calcium 8.9 08/01/22 14:15: B-Natriuretic Peptide 6.0 08/01/22 17:09: POC Glucose 278 H 08/01/22 22:01: POC Glucose 446 H 08/02/22 05:49: WBC 5.6, RBC 4.56, Hgb 12.9, Hct 41.8, MCV 91.7, MCH 28.3, MCHC 30.9 L, RDW Std Deviation 48.8 H, RDW Coeff of Michelle 14.5, Plt Count 322, MPV 10.7, Immature Gran % (Auto) 0.200, Neut % (Auto) 73.0 H, Lymph % (Auto) 22.3, Harding % (Auto) 4.1, Eos % (Auto) 0.0, Baso % (Auto) 0.4, Absolute Neuts (auto) 4.1, Absolute Lymphs (auto) 1.24, Nucleated RBC % 0 08/02/22 05:49: Sodium 135 L, Potassium 4.3, Chloride 103, Carbon Dioxide 26.0, Anion Gap 6, BUN 21 H, Creatinine 0.95, Estim Creat Clear Calc 45.54, Est GFR (MDRD) Af Amer 75, Est GFR (MDRD) Non-Af 62, BUN/Creatinine Ratio 22.2 H, Glucose 354 H, Calcium 8.4 L, Total Bilirubin 0.20, AST 25, ALT 41, Alkaline Phosphatase 76, Total Protein 6.7, Albumin 2.8 L, Globulin 3.9, Albumin/Globulin Ratio 0.7 L 08/02/22 06:23: POC Glucose 368 H Micro: Microbiology 08/01/22 14:09 Nasal Secretion SARS-CoV-2 Antigen (Rapid) - Final 08/01/22 14:30 Interface Orders Influenza Types A,B Direct FA (CARLOS) - Final Influenzae A Radiography Diagnostic Testing: Radiology Impression Chest X-Ray 08/01/22 14:29 IMPRESSION: No focal infiltrate. Left lower lobe mass similar to prior CT, allowing for differences in technique. Electronically Signed: Robson Light MD at 15:02 EST , Physical Exam Narrative Physical exam: General: Alert, Oriented x3, Cooperative, still appears slightly dyspneic, on 2 L of oxygen HEENT: Atraumatic Oral: Moist Mucosa Neck: Supple Lungs: Diminished to auscultation, wheezes++ Cardiovascular: HS I+II, regular, no murmurs Abdomen: Bowel Sounds Present, Soft, Non Tender Extremities: No edema Skin: No rashes, No breakdown Neurological: Grossly intact Psych/Mental Status: Appropriate Assessment & Plan Assessment/Plan (1) Hypoxia: PLAN: Plan 1. Acute hypoxia secondary to acute influenza A bronchitis Patient remains on 2 L of oxygen Admitting chest x-ray showed no focal infiltrate Continue to encourage use of incentive spirometer, wean off for SPO2 more than 94% 2. Acute influenza A bronchitis, continue on IV steroids, Tamiflu 3. Left lung mass, not actively worked up by patient, appears unchanged Encouraged to follow-up 4. Type II DM, insulin-dependent, blood sugars uncontrolled on account of steroid Continue on increased Lantus 15 units QHS, 5 units Lispro TID premeal insulin as well as insulin sliding scale with blood glucose checks 5. Hypothyroidism, continue Synthroid 6. Hyperlipidemia, continue statin 7. Nicotine dependence, continue replacement 8. DVT PPx- Lovenox SC Charges/Coding Visit Charges Inpatient E&M: 73197 Subs Hosp L2
--- NOTE | 2022-08-02 11:00 | CASEMGMT ---
TOY SAPP Face to Face with patient for initial transition planning/care coordination assessment. RN CM introduced self and role at [facility]. Patient lying in bed, alert and oriented. Patient willing to participate in assessment and is able to answer all questions appropriately. Care providers, pharmacy, and demographics verified. Patient wishes to discharge home, denies need for home health at this time. Patient states she has no further needs or concerns at this time. CM to follow for discharge planning needs that may arise. PCP: Lucille Specialists: none Preferred Pharmacy: [facility] Insurance: [employer] [place] Prescription Benefit: yes Living Will/HPOA: none LNOK: daughter Living Arrangements: Patient lives alone in a single story duplex with 7 steps and railing to enter the home. Patient states she is independent and able to ambulate stairs. Transportation: self, friend Brittnee DME/HHC: Patient states she has cane and nebulizer at home. Patient is currently on oxygen, will monitor for oxygen at discharge. Patient states no preferences for DME. No previous HHC or SNF Disposition Plan: Patient to discharge home with family support and follow-up plans in place. Will monitor for home oxygen at discharge. Tiffany DOBSON, RN, CM
[2022-08-02] MEDS: 0.9% Normal Saline 1,000 ML 75 ML IV (12:28)
[2022-08-02] MEDS: Insulin Lispro 100 UNIT/ML INSULN.PEN 20 UNIT SC (12:48)
[2022-08-02 13:11] LABS: Bedside Glucose > 500 mg/dL (74-106)
[2022-08-02 16:45] LABS: Bedside Glucose 421 mg/dL (74-106)
[2022-08-02 17:10] LABS: Bedside Glucose 381 mg/dL (74-106)
[2022-08-02] MEDS: Insulin Glargine-YFGN 100 UNIT/ML Pen 15 UNIT SC (21:57)
[2022-08-02 23:56] LABS: Bedside Glucose 429 mg/dL (74-106)
[2022-08-03] VITALS (15 sets, daily range): BP systolic 115–153; BP diastolic 66–88; PULSE 68–109; RESP 16–18; TEMP 36.4–36.8; O2SAT 92–96
[2022-08-03] MEDS: 0.9% Normal Saline 1,000 ML 75 ML IV ×2 (00:17→13:18)
[2022-08-03 04:27] LABS: Absolute Neutrophil Count 5.9 X10^3/uL (2.0-7.7); Basophil# 0.01 X10^3/uL; Basophil% 0.1 % (0-1); Hemoglobin 12.2 g/dL (12.0-15.0); Lymphocyte % 14.7 % (19-41); Mean Corp Hgb Conc 31.3 g/dL (32-36); Mean Corpuscular Hgb 28.8 pg (27.0-32.0); Mean Platelet Vol. 10.4 fl (6.2-12.0); Monocyte# 0.49 X10^3/uL; Monocyte% 6.6 % (0-10); NRBC Flagged by Analyzer 0 % (0-5); Neutrophil # 5.85 X10^3/uL (2.7-7.7); Neutrophil % 78.3 % (47-70); Platelet Count 351 K/mm3 (150-450); RBC Distribution Width CV 14.6 % (11.6-14.6); RBC Distribution Width SD 49.1 fl (35.1-43.9); Red Blood Count 4.24 M/mm3 (4.2-5.4); White Blood Count 7.5 K/mm3 (4.4-11.0)
[2022-08-03 04:54] LABS: ALB/GLOB Ratio 0.8 RATIO (0.9-2.4); AST(SGOT) 21 U/L (15-37); Alanine Aminotransfer ALT/SGPT 35 U/L (13-56); Albumin, Serum 2.7 g/dL (3.2-5.0); Alkaline Phosphatase 66 U/L (45-117); Anion Gap 4 (5-15); BUN 25 mg/dL (7-18); BUN/Creat Ratio 25.5 RATIO (10-20); Calcium,Total 8.4 mg/dL (8.5-10.1); Chloride 106 mmol/L (98-107); Creatinine, Serum 0.98 mg/dL (0.55-1.02); EST Glomerular Filtration Rate 59 mL/min (>60); Est Glom Filt Rate - Afr Amer 72 mL/min (>60); Estimated Creatinine Clearance 44.15 ml/min; Globulin 3.6 g/dL (2.2-4.2); Glucose 373 mg/dL (74-106); Potassium 4.5 mmol/L (3.5-5.1); Protein, Total 6.3 g/dL (6.4-8.2); Sodium Level 138 mmol/L (136-145)
[2022-08-03] MEDS: Levothyroxine 50 MCG Tablet PO (05:32)
[2022-08-03] MEDS: 0.9% Saline Lock 10 ML Syringe IV ×2 (05:33→21:26)
[2022-08-03] MEDS: Ipratropium/Albuterol Sulfate 3 ML AMPUL.NEB INHALATION ×5 (07:25→23:26)
[2022-08-03] MEDS: Insulin Lispro 100 UNIT/ML INSULN.PEN SC ×6 (08:12→21:27)
[2022-08-03] MEDS: Enoxaparin 40 MG/0.4 ML Syringe SC (08:14)
[2022-08-03] MEDS: Cholecalciferol (VIT D3) 25 MCG TABLET (1,000 UNITS) 50 MCG PO (08:18)
[2022-08-03] MEDS: Oseltamivir Phosphate 30 MG Capsule PO ×2 (08:19→21:27)
[2022-08-03 09:46] LABS: Bedside Glucose 336 mg/dL (74-106)
[2022-08-03 12:40] LABS: Bedside Glucose 441 mg/dL (74-106)
--- NOTE | 2022-08-03 15:29 | PN.HOSP_ITS ---
Subjective Subjective Follow-up on acute hypoxia/acute influenza A bronchitis: Patient was seen and examined.? Patient is on 1 to 2 L of oxygen. She still has lots of wheezes. Denies any fever or chills.? No acute events overnight. Objective Data Objective Data Vital Signs: Vital Signs Temp Pulse Resp BP Pulse Ox O2 Del Method O2 Flow Rate 98.1 F 83 18 133/88 H 92 Nasal Cannula 2 08/03/22 13:38 08/03/22 15:16 08/03/22 15:16 08/03/22 13:38 08/03/22 13:38 08/03/22 14:00 08/03/22 14:00 Oxygen Flow Rate (L/min) 2 Oxygen Delivery Method Nasal Cannula Weight: 94 kg Body Mass Index (BMI) 35.5 Intake & Output: Intake and Output for Last 24 Hours 08/01/22 08/02/22 08/03/22 23:59 23:59 23:59 Intake Total 240 / 240 2040 / 2260 3002.50 / 3002.50 Balance 240 / 240 2040 / 2260 3002.50 / 3002.50 Lab / Micro Data Result Diagrams: 08/03/22 04:07 08/03/22 04:07 Labs: Laboratory Results - last 24 hr 08/02/22 15:03: POC Glucose 421 H 08/02/22 16:39: POC Glucose 381 H 08/02/22 21:56: POC Glucose 429 H 08/03/22 04:07: WBC 7.5, RBC 4.24, Hgb 12.2, Hct 39.0, MCV 92.0, MCH 28.8, MCHC 31.3 L, RDW Std Deviation 49.1 H, RDW Coeff of Michelle 14.6, Plt Count 351, MPV 10.4, Immature Gran % (Auto) 0.300, Neut % (Auto) 78.3 H, Lymph % (Auto) 14.7 L, Snyder % (Auto) 6.6, Eos % (Auto) 0.0, Baso % (Auto) 0.1, Absolute Neuts (auto) 5.9, Absolute Lymphs (auto) 1.10, Nucleated RBC % 0 08/03/22 04:07: Sodium 138, Potassium 4.5, Chloride 106, Carbon Dioxide 28.0, Anion Gap 4 L, BUN 25 H, Creatinine 0.98, Estim Creat Clear Calc 44.15, Est GFR (MDRD) Af Amer 72, Est GFR (MDRD) Non-Af 59 L, BUN/Creatinine Ratio 25.5 H, Glucose 373 H, Calcium 8.4 L, Total Bilirubin 0.20, AST 21, ALT 35, Alkaline Phosphatase 66, Total Protein 6.3 L, Albumin 2.7 L, Globulin 3.6, Albumin/Globu zoraida Ratio 0.8 L 08/03/22 08:09: POC Glucose 336 H 08/03/22 11:36: POC Glucose 441 H Micro: Microbiology 08/01/22 14:09 Nasal Secretion SARS-CoV-2 Antigen (Rapid) - Final 08/01/22 14:30 Interface Orders Influenza Types A,B Direct FA (CARLOS) - Final Influenzae A Physical Exam Narrative Physical exam: General: Alert, Oriented x3, Cooperative, still appears slightly dyspneic, on 1- 2 L of oxygen HEENT: Atraumatic Oral: Moist Mucosa Neck: Supple Lungs: Diminished to auscultation, wheezes++ Cardiovascular: HS I+II, regular, no murmurs Abdomen: Bowel Sounds Present, Soft, Non Tender Extremities: No edema Skin: No rashes, No breakdown Neurological: Grossly intact Psych/Mental Status: Appropriate Assessment & Plan Assessment/Plan (1) Hypoxia: PLAN: Plan 1. Acute hypoxia secondary to acute influenza A bronchitis Patient remains on 1-2 L of oxygen Admitting chest x-ray showed no focal infiltrate Continue to encourage use of incentive spirometer, wean off for SPO2 more than 94% 2. Acute influenza A bronchitis, continue on IV steroids, Tamiflu 3. Left lung mass, not actively worked up by patient, appears unchanged Encouraged to follow-up with pulmonology in the outpatient 4. Type II DM, insulin-dependent, blood sugars uncontrolled on account of steroids Continue on increased Lantus 20 units QHS, 10 units Lispro TID premeal insulin as well as insulin sliding scale with blood glucose checks 5. Hypothyroidism, continue Synthroid 6. Hyperlipidemia, continue statin 7. Nicotine dependence, continue replacement 8. DVT PPx- Lovenox SC Charges/Coding Visit Charges Inpatient E&M: 41173 Subs Hosp L3
[2022-08-03] MEDS: Insulin Lispro 100 UNIT/ML INSULN.PEN 10 UNIT SC (16:31)
[2022-08-03 18:41] LABS: Bedside Glucose 397 mg/dL (74-106)
[2022-08-03] MEDS: Atorvastatin Calcium 20 MG Tablet PO (21:26)
[2022-08-03] MEDS: Latanoprost 0.005% 1 Bottle 1 DRP EACH EYE (21:26)
[2022-08-03] MEDS: Insulin Glargine-YFGN 100 UNIT/ML Pen 20 UNIT SC (21:27)
[2022-08-03 22:06] LABS: Bedside Glucose 376 mg/dL (74-106)
[2022-08-04] VITALS (13 sets, daily range): BP systolic 147–158; BP diastolic 52–74; PULSE 76–105; RESP 18–21; TEMP 36.2–37.1; O2SAT 87–95
[2022-08-04] MEDS: 0.9% Normal Saline 1,000 ML 75 ML IV ×2 (00:54→14:06)
[2022-08-04] MEDS: 0.9% Saline Lock 10 ML Syringe IV (05:19)
[2022-08-04] MEDS: Levothyroxine 50 MCG Tablet PO (05:19)
[2022-08-04] MEDS: Ipratropium/Albuterol Sulfate 3 ML AMPUL.NEB INHALATION ×2 (07:15→12:20)
[2022-08-04] MEDS: Insulin Lispro 100 UNIT/ML INSULN.PEN SC ×2 (07:52→11:52)
[2022-08-04] MEDS: Insulin Lispro 100 UNIT/ML INSULN.PEN 10 UNIT SC ×2 (07:52→11:51)
[2022-08-04] MEDS: Oseltamivir Phosphate 30 MG Capsule PO (08:56)
[2022-08-04] MEDS: Enoxaparin 40 MG/0.4 ML Syringe SC (08:56)
[2022-08-04] MEDS: Cholecalciferol (VIT D3) 25 MCG TABLET (1,000 UNITS) 50 MCG PO (08:56)
[2022-08-04 09:01] LABS: Bedside Glucose 293 mg/dL (74-106)
--- NOTE | 2022-08-04 11:07 | CT_ITS ---
STUDY: CTA CHEST REASON FOR EXAM: Female, 72 years old. Hypoxia, elevated d-dimer. History of influenza a period RADIATION DOSAGE (If Supplied By Facility): CTDIvol = ( 13.31 ) mGy, DLP = ( 530.44 ) mGycm TECHNIQUE: The examination was performed with the intravenous administration of IV 100mL Isovue-370. Post-processing of the angiographic images was performed, with multiplanar reformation and 3D reconstruction. Individualized dose optimization techniques were used for this CT. COMPARISON: Comparison is made with prior chest x-ray Date of 08/01/2022. FINDINGS: Bilateral axillary lymph nodes. The largest in the right axilla measures 2.1 cm. Normal enhancement of the main pulmonary artery and right and left pulmonary arteries. Normal enhancement of the bilateral peripheral pulmonary arteries. There is no demonstrated pulmonary embolism. Normal thoracic aorta and visualized great vessels. There is no demonstrated aortic dissection. Normal heart and pericardium. No evidence of coronary artery calcification. Normal mediastinum. Normal hilar regions. Normal visualized trachea and bronchi. The lungs are well expanded. There is a 4.6 cm x 3.6 cm mass in the left lower lobe. Mild increased markings at the right lung base suggestive of either early infiltrate and/or atelectasis. Normal pleura. Normal chest wall structures. There are degenerative changes of thoracic spine. Normal visualized upper abdomen. CT/CTA Chest W/WO Contrast IMPRESSION: 4.6 cm x 3.6 cm mass in the left lower lobe. Mild increased markings at the right lung base suggestive of either atelectasis and/or early infiltrate. Electronically Signed: Brian Vargas MD at 12:26 EST ,
[2022-08-04 12:10] LABS: Bedside Glucose 323 mg/dL (74-106)
--- NOTE | 2022-08-04 14:33 | CASEMGMT ---
Per Roxana YEAGER, pt qualifies for 2L at rest and 3L w/ exertion home oxygen. Pt had states previously no preference for DME company and green sheet left on chart for [facility]. Order sent to [facility] via [facility] and call to Soni at [facility] to notify of order, voices understanding. Pt updated on all, voices understanding. Pt provided with [facility] pulse ox for discharge. Pt declines need for any further therapy. Justo YEAGER CM
--- NOTE | 2022-08-04 15:16 | DCINST_ITS ---
Discharge Instructions Diet Discharge Diet: 1800 Calorie Control Diet Activity Discharge Activity: Return to Normal Activity Weight Bearing Status: Full weight bearing Follow Up Care Test Results: Test results from this visit will be discussed in further detail at your follow- up appointment, if applicable. Discharge Plan Admission Admit Date/Time: 08/01/22 15:38 Primary Reason for Your Visit: INFLUENZA A BRONCHITIS, HYPOXIA Attending Provider: Nish Rajput Primary Care Provider: Jai Adkins Consulting Providers: Nicol Sweeney Instructions Additional Instructions / Restrictions: 2 LITERS OXYGEN AT REST, 3 LITERS OXYGEN WITH ACTIVITY Discharge Orders/Prescriptions Prescriptions: New nicotine 21 mg/24 hr Patch 24 Hour 21 mg transdermal DAILY Qty: 30 0RF insulin lispro [Humalog KwikPen Insulin] 100 unit/mL Insulin Pen 10 unit subcut TIDAC Qty: 0 0RF insulin glargine-yfgn 100 unit/mL (3 mL) Insulin Pen 20 unit subcut QHS Qty: 0 0RF albuterol sulfate 90 mcg/actuation HFA aerosol inhaler 2 inh inhalation 4X/DAY Qty: 1 0RF prednisone 10 mg tablet 10 mg PO BID Qty: 15 0RF Rx Instructions: 10 MG TWICE A DAY FOR 5 DAYS, THEN ONE DAILY FOR 5 DAYS, THEN STOP Continued cholecalciferol (vitamin D3) 2,000 unit capsule 2,000 unit PO DAILY latanoprost 1 DROP bottle 1 drp EACH EYE QHS levothyroxine 50 MCG tablet 50 mcg PO DAILY insulin lispro 100 unit/mL insulin pen 2 - 3 unit SUBCUT BID rosuvastatin 10 mg tablet 10 mg PO QODAY Discontinued insulin glargine [Lantus Solostar U-100 Insulin] 100 unit/mL (3 mL) insulin pen 7 unit SUBCUT QHS Label Comments: inject 7 units subcutaneously nightly Referrals / Follow Up: Jai Adkins MD [Primary Care Provider] - See Referral Note (IN 3 WEEKS) Jose Cummings MD [Med Staff - Active Staff] - See Referral Note (ON AUGUST 13, 2022: 9:15 AM (SHOW UP 15 MIN EARLY)) Disposition Disposition (needs filled in before D/C Order can be placed): Home, Self Care
--- NOTE | 2022-08-04 16:05 | DS.PCM_ITS ---
Providers Date of Admission: 08/01/22 Date of Discharge: 08/04/22 Primary Care Physician: Dr. Jai Adkins MD Reason For Visit: ACUTE INFLUENZA A Diagnosis Discharge Diagnosis (1) Hypoxia: Status: Acute Code(s): R09.02 - Hypoxemia Plan Diagnosis: #1 acute hypoxia secondary to influenza A bronchitis #2 influenza A bronchitis #3 left lung mass etiology unknown #4 type 2 diabetes #5 hypothyroidism #6 hyperlipidemia Medications at Discharge Home Medications latanoprost 0.005 % eye drops 1 drp EACH EYE QHS glaucoma 02/25/18 levothyroxine 50 mcg tablet 50 mcg PO DAILY THYROID 02/25/18 cholecalciferol (vitamin D3) 50 mcg (2,000 unit) capsule 2,000 unit PO DAILY SUPPLEMENT 06/03/18 insulin lispro 100 unit/mL subcutaneous pen 2 - 3 unit subcut BID DIABETES 08/01/22 rosuvastatin 10 mg tablet 10 mg PO QODAY CHOLESTEROL 08/01/22 albuterol sulfate 90 mcg/actuation aerosol inhaler 2 inh inhalation 4X/DAY #1 device 08/04/22 insulin glargine-yfgn 100 unit/mL (3 mL) subcutaneous pen 20 unit (0.2 mL) subcut QHS ##0 08/04/22 insulin lispro 100 unit/mL subcutaneous pen (Humalog KwikPen (U-100) Insulin) 10 unit (0.1 mL) subcut TIDAC ##0 08/04/22 nicotine 21 mg/24 hr daily transdermal patch 21 mg transdermal DAILY #30 patches 08/04/22 prednisone 10 mg tablet 10 mg PO BID #15 tabs 08/04/22 Hospital Course Operations None Procedures None Summary of Care Provided Minutes Spent on Discharge: 31 Hospital Course: This 72-year-old white female was seen in the emergency room at [facility] with complaints of 1 week of generalized cough and worsening shortness of breath, she was in her PCPs office that day and her pulse ox was in the mid 80s on room air, she was instructed to go to the ER for evaluation. Labs revealed an elevated white count 11.8, creatinine was elevated at 1.35 and BUN was 21. Blood glucose was 350, chest x-ray revealed no focal infiltrate, there was noted to be a left lower lobe lung mass that had been present on a pre vious CT. Patient was placed on oxygen, given aerosol treatments and IV corticosteroids, patient was positive for influenza A, she was placed on Tamiflu and admitted to PCU, she was monitored and given IV corticosteroids. On 08/04/2022, patient appeared stable for discharge home: On examination she appeared in good health and spirits, she does not appear to be in any distress. Vital signs as documented. Skin warm and dry and without overt rashes. Neck without JVD, thyroid appears normal, trachea is midline, neck is supple. Lungs clear, normal air movement was noted. Heart exam notable for regular rhythm, normal sounds and absence of murmurs, rubs or gallops. Abdomen unremarkable and without evidence of organomegaly, masses, or abdominal aortic enlargement, bowel sounds are present in all 4 quadrants, no abdominal tenderness was noted. Extremities nonedematous, no cyanosis was noted, no clubbing was noted. Neuro: Cranial nerves II through XII are grossly intact, no focal motor deficits were noted, sensation to light touch and pinprick is intact, motor exam 5/5 throughout. Psych: Patient is alert and oriented x3, she does not appear anxious or depressed, she does not appear agitated. At the time of discharge on 08/04/2022, patient required 2 L of oxygen at rest to maintain a pulse ox above 88% and 3 L of oxygen with activity to maintain a pulse ox above 88%. Patient's pulse ox on room air was 87%. Home oxygen was set up for the patient. In addition, an appointment was made with pulmonary medicine for the patient to be seen due to her lung mass-this appeared to have increased in size since the last imaging studies done here, this had been worked up in April [address] [facility], it had been biopsied and came back showing no cancer-she was supposed to undergo a CT guided biopsy in May 2021. According to medical records that I was able to obtain about the patient care, she was set up for a CT lung biopsy on 06/04/2021 but she canceled due to family crisis, at that time it was noted that she did not want to reschedule the biopsy and told the [facility] worker who contacted her that she would call back to arrange for rescheduling of the biopsy. I do not think she ever followed up on this. Arrangements were made for the patient to see Dr. Cummings August 13, 2022 Weight / BMI Weight Weight: 94 kg Body Mass Index (BMI) 35.5 ABG / Lab / Microbiology Data Result Diagrams: 08/03/22 04:07 08/03/22 04:07 Laboratory: Laboratory Results - last 24 hr 08/03/22 16:26: POC Glucose 397 H 08/03/22 21:23: POC Glucose 376 H 08/04/22 07:50: POC Glucose 293 H 08/04/22 11:49: POC Glucose 323 H Microbiology: Microbiology 08/01/22 14:09 Nasal Secretion SARS-CoV-2 Antigen (Rapid) - Final 08/01/22 14:30 Interface Orders Influenza Types A,B Direct FA (CARLOS) - Final Influenzae A Radiography Diagnostic Testing: Radiology Impression Chest CTA 08/04/22 11:07 IMPRESSION: 4.6 cm x 3.6 cm mass in the left lower lobe. Mild increased markings at the right lung base suggestive of either atelectasis and/or early infiltrate. Electronically Signed: Brian Vargas MD at 12:26 EST , D/C Instructions Discharge Diet: 1800 Calorie Control Diet Weight Bearing Status: Full weight bearing Meaningful Use Info Meaningful Use Diagnoses (Choose all that apply): None applicable Discharge Plan Admission Admit Date/Time: 08/01/22 15:38 Primary Reason for Your Visit: INFLUENZA A BRONCHITIS, HYPOXIA Attending Provider: Nish Rajput Primary Care Provider: Jai Adkins Consulting Providers: Nicol Sweeney Instructions Additional Instructions / Restrictions: 2 LITERS OXYGEN AT REST, 3 LITERS OXYGEN WITH ACTIVITY Discharge Orders/Prescriptions Prescriptions: New nicotine 21 mg/24 hr Patch 24 Hour 21 mg transdermal DAILY Qty: 30 0RF insulin lispro [Humalog KwikPen Insulin] 100 unit/mL Insulin Pen 10 unit subcut TIDAC Qty: 0 0RF insulin glargine-yfgn 100 unit/mL (3 mL) Insulin Pen 20 unit subcut QHS Qty: 0 0RF albuterol sulfate 90 mcg/actuation HFA aerosol inhaler 2 inh inhalation 4X/DAY Qty: 1 0RF prednisone 10 mg tablet 10 mg PO BID Qty: 15 0RF Rx Instructions: 10 MG TWICE A DAY FOR 5 DAYS, THEN ONE DAILY FOR 5 DAYS, THEN STOP Continued cholecalciferol (vitamin D3) 2,000 unit capsule 2,000 unit PO DAILY latanoprost 1 DROP bottle 1 drp EACH EYE QHS levothyroxine 50 MCG tablet 50 mcg PO DAILY insulin lispro 100 unit/mL insulin pen 2 - 3 unit SUBCUT BID rosuvastatin 10 mg tablet 10 mg PO QODAY Discontinued insulin glargine [Lantus Solostar U-100 Insulin] 100 unit/mL (3 mL) insulin pen 7 unit SUBCUT QHS Label Comments: inject 7 units subcutaneously nightly Referrals / Follow Up: Jai Adkins MD [Primary Care Provider] - See Referral Note (IN 3 WEEKS) Jose Cummings MD [Med Staff - Active Staff] - See Referral Note (ON AUGUST 13, 2022: 9:15 AM (SHOW UP 15 MIN EARLY)) Disposition Disposition (needs filled in before D/C Order can be placed): Home, Self Care Charges/Coding Visit Charges Inpatient E&M: 13428 Disch Hosp
== END 2022-08-04 17:05 | disposition home or self-care (01) | DRG 194 ==
LOC: ED 14:59 → PCU 15:53
PROVIDERS: Nurse Practitioner; Admitting Provider Internal Medicine; Emergency Provider Emergency Medicine; PCP Family Medicine; Visit Provider Internal Medicine
DX: J10.1 Influenza due to other identified influenza virus with other respiratory manifestations (principal); J44.0 Chronic obstructive pulmonary disease with (acute) lower respiratory infection; Z79.4 Long term (current) use of insulin; E11.9 Type 2 diabetes mellitus without complications; E03.9 Hypothyroidism, unspecified; E78.5 Hyperlipidemia, unspecified; F17.210 Nicotine dependence, cigarettes, uncomplicated; J20.8 Acute bronchitis due to other specified organisms; R09.02 Hypoxemia; Z79.899 Other long term (current) drug therapy; Z79.890 Hormone replacement therapy; R91.8 Other nonspecific abnormal finding of lung field
CPT/HCPCS: 36415; 71045; 71275; 80048; 80053; 82962; 83880; 85025; 85379; 87804; 87811; 93005; 94640; 94760; 97802; 99251; 99285; 99406; J7030; Q9967; A4216; G0463

== ENCOUNTER → 2022-09-15 | Outpatient (CLI) | payer MEDICARE, OTHER, SELFPAY ==
[2022-09-15 14:30] LABS: Absolute Lymphocyte Count 2.65 X10^3/uL (0.83-4.51); Absolute Neutrophil Count 5.7 X10^3/uL (2.0-7.7); Basophil# 0.12 X10^3/uL; Basophil% 1.3 % (0-1); Eosinophil# 0.15 X10^3/uL; Eosinophils% 1.6 % (0-5); Hematocrit 45.2 % (37-47); Hemoglobin 13.9 g/dL (12.0-15.0); Lymphocyte # 2.65 X10^3/ul (0.83-4.51); Lymphocyte % 28.2 % (19-41); Mean Corp Hgb Conc 30.8 g/dL (32-36); Mean Corpuscular Hgb 28.7 pg (27.0-32.0); Mean Corpuscular Volume 93.2 fL (81-99); Mean Platelet Vol. 10.1 fl (6.2-12.0); Monocyte# 0.69 X10^3/uL; Monocyte% 7.3 % (0-10); NRBC Flagged by Analyzer 0 % (0-5); Neutrophil # 5.74 X10^3/uL (2.7-7.7); Neutrophil % 61.1 % (47-70); Platelet Count 432 K/mm3 (150-450); RBC Distribution Width CV 14.7 % (11.6-14.6); RBC Distribution Width SD 51.3 fl (35.1-43.9); Red Blood Count 4.85 M/mm3 (4.2-5.4); White Blood Count 9.4 K/mm3 (4.4-11.0)
[2022-09-15 14:36] LABS: Prothrombin Time (Protime)PT. 12.7 SECONDS (11.7-14.9)
[2022-09-15 15:05] LABS: Anion Gap 3 (5-15); BUN 17 mg/dL (7-18); BUN/Creat Ratio 18.4 RATIO (10-20); Calcium,Total 9.1 mg/dL (8.5-10.1); Chloride 104 mmol/L (98-107); Creatinine, Serum 0.93 mg/dL (0.55-1.02); EST Glomerular Filtration Rate 63 mL/min (>60); Est Glom Filt Rate - Afr Amer 76 mL/min (>60); Glucose 245 mg/dL (74-106); Potassium 4.3 mmol/L (3.5-5.1); Sodium Level 137 mmol/L (136-145)
== END | disposition home or self-care (01) ==
LOC: PAVLAB 14:15
PROVIDERS: PCP Family Medicine; Referring Provider Internal Medicine; Visit Provider Internal Medicine
DX: R91.8 Other nonspecific abnormal finding of lung field (principal)
CPT/HCPCS: 36415; 80048; 85025; 85610

== ENCOUNTER → 2022-09-16 | Outpatient (CLI) | payer MEDICARE, OTHER, SELFPAY ==
--- NOTE | 2022-09-17 09:51 | PFT ---
INTRODUCTION: The patient is a 72-year-old female that presents for pulmonary function studies secondary to a diagnosis of shortness of breath. Respiratory therapy reported good patient effort. Bronchodilators were used during testing. INTERPRETATION: Forced expiration spirometry demonstrates the presence of a mild large airways obstructive ventilatory defect. There was no significant response to aerosolized bronchodilators. Spirograms are of good quality but plateau gradually indicating slow emptying of the lungs. Body plethysmography was performed and reveals lung volumes to be within normal limits. Diffusing capacity by single breath CO was likewise within normal limits. IMPRESSION: Irreversible mild large airways obstructive ventilatory defect with preserved lung volumes and diffusing capacity.
== END | disposition home or self-care (01) ==
LOC: PSN 09:10
PROVIDERS: PCP Family Medicine; Visit Provider Internal Medicine
DX: R91.8 Other nonspecific abnormal finding of lung field (principal)
CPT/HCPCS: 94060; 94726; 94729